=== PATIENT | male | born 2000 | race Caucasian/White ===

== ENCOUNTER 2020-01-01 13:09 | Emergency (ER) | payer BC ==
[~2020-01-01] VITALS: Ht 193 cm; Wt 74.8 kg
[2020-01-01 14:30] LABS: HEMATOCRIT 43.4 % (42.0-52.0); HEMOGLOBIN 15.4 gm/dL (14.0-18.0); MCH 30.7 pg (26.0-34.0); MCHC 35.4 g/dL (28.0-37.0); MCV 86.5 fL (80.0-100.0); PLATELET COUNT 139 thou/uL (150-400); RBC 5.02 mil/uL (4.50-6.00); RDW 12.3 % (10.5-14.5); WBC 5.1 thou/uL (4.0-11.0)
[2020-01-01 14:37] LABS: CALCIUM 9.1 mg/dL (8.5-10.1); POTASSIUM 3.8 mmol/L (3.5-5.1)
[2020-01-01 14:44] LABS: ALBUMIN 4.2 g/dL (3.4-5.0); TOTAL BILIRUBIN 0.8 mg/dL (<0.1-1.0)
[2020-01-01 15:21] LABS: ABSOLUTE NEUTROPHILS 2.1 thou/uL (1.4-8.2); ATYPICAL LYMPHS 3 %
[2020-01-01 15:35] VITALS: BP 112/69
--- NOTE | 2020-01-03 08:57 | EKG ---
[facility] [place] [address] [place] [address] ELECTROCARDIOGRAM REPORT Name: LUKE WEBBERSHAHEEN Cabrera Room #: DEP [facility]#: [id number] Admission: 01/01/20 Attend Phys: Discharge: 01/01/20 Date of : 89 Report #: [id number] THIS REPORT FOR: cc: FAM - Family physician unknown FAM - Family physician unknown Chaim Watkins MD ~ THIS REPORT FOR: //name// [facility] ED Test Date: 2020-01-01 Test Time: 13:59:28 Pat Name: CASS WEBBER Department: Room: Gender: Kitchen [employer]sembler: [facility] : 2000 Requested By: Akira Rios Order Number: [id number] MD: Chaim Watkisn Measurements Intervals [place] Rate: 75 P: 68 DC: 129 QRS: 73 QRSD: 98 T: 56 QT: 374 QTc: 418 Interpretive Statements Sinus rhythm No previous ECG available for comparison Electronically Signed On 01-03-2020 8:55:56 CDT by Chaim Watkins [email or web address] <ELECTRONICALLY SIGNED> By: Chaim Watkins MD 01/03/20 [id number] Chaim Watkins MD /TREASURE
== END 2020-01-01 15:35 | disposition home or self-care (01) ==
LOC: ER 13:09
PROVIDERS: Physician Assistant
DX: S01.81XA Laceration without foreign body of other part of head, initial encounter (principal); R55 Syncope and collapse; Z23 Encounter for immunization; Z87.891 Personal history of nicotine dependence; W22.8XXA Striking against or struck by other objects, initial encounter; Y93.89 Activity, other specified; Y92.89 Other specified places as the place of occurrence of the external cause; Y99.8 Other external cause status